=== PATIENT | female | born 1975 | race Caucasian/White ===

== ENCOUNTER 2019-12-05 12:08 | Outpatient (REF) | payer MEDICAID, SELFPAY | END 2019-12-05 12:09 | disposition home or self-care (01) | LOC: HO.LAB 12:08 | PROVIDERS: Visit Provider Internal Medicine | DX: Z20.828 Contact with and (suspected) exposure to other viral communicable diseases (principal) | CPT/HCPCS: 36415; 87635 ==

== ENCOUNTER 2020-01-16 16:39 | Outpatient (REF) | payer MEDICAID, SELFPAY | END 2020-01-16 16:40 | disposition home or self-care (01) | LOC: HO.LAB 16:39 | PROVIDERS: Visit Provider Internal Medicine | DX: Z20.828 Contact with and (suspected) exposure to other viral communicable diseases (principal) | CPT/HCPCS: C9803; U0003 ==

== ENCOUNTER 2020-02-21 17:47 | Outpatient (REF) | payer MEDICAID, SELFPAY | END 2020-02-21 17:48 | disposition home or self-care (01) | LOC: HO.LAB 17:47 | PROVIDERS: PCP Pediatrics; Visit Provider Internal Medicine | DX: Z20.828 Contact with and (suspected) exposure to other viral communicable diseases (principal) | CPT/HCPCS: C9803; U0003 ==

== ENCOUNTER 2020-06-20 13:17 | Outpatient (REF) | payer MEDICAID, SELFPAY ==
[2020-06-20 13:55] LABS: COVID-19 Test Positive (Negative)
== END 2020-06-20 13:18 | disposition home or self-care (01) ==
LOC: HO.LAB 13:17
PROVIDERS: Visit Provider Internal Medicine
DX: Z20.822 Contact with and (suspected) exposure to COVID-19 (principal)
CPT/HCPCS: 36415; 87635; C9803

== ENCOUNTER 2020-07-03 12:23 | Outpatient (REF) | payer MEDICAID, SELFPAY ==
[2020-07-03 13:06] LABS: COVID-19 Test Negative (Negative); IDNOW Serial# 55D5AD1C
== END 2020-07-03 12:24 | disposition home or self-care (01) ==
LOC: HO.LAB 12:23
PROVIDERS: Visit Provider Internal Medicine
DX: Z20.822 Contact with and (suspected) exposure to COVID-19 (principal)
CPT/HCPCS: 36415; 87635; C9803

== ENCOUNTER 2020-07-13 09:22 | Outpatient (REF) | payer MEDICAID, SELFPAY ==
[2020-07-13 09:49] LABS: COVID-19 Test Negative (Negative)
== END 2020-07-13 09:23 | disposition home or self-care (01) ==
LOC: HO.LAB 09:22
PROVIDERS: Visit Provider Internal Medicine
DX: Z20.822 Contact with and (suspected) exposure to COVID-19 (principal)
CPT/HCPCS: 36415; 87635; C9803

== ENCOUNTER 2020-07-26 15:24 | Outpatient (REF) | payer MEDICAID, SELFPAY ==
[2020-07-26 15:48] LABS: COVID-19 Test Negative (Negative)
== END 2020-07-26 15:25 | disposition home or self-care (01) ==
LOC: HO.LAB 15:24
PROVIDERS: Visit Provider Internal Medicine
DX: Z20.822 Contact with and (suspected) exposure to COVID-19 (principal)
CPT/HCPCS: 36415; 87635; C9803

== ENCOUNTER 2023-11-04 14:59 | Outpatient (REF) | payer MEDICAID, SELFPAY ==
--- NOTE | ~2023-11-04 | MM_ITS ---
EXAMINATION: MM DIAGNOSTIC DIGITAL BREAST TOMOSYNTHESIS, BILATERAL US BREAST LIMITED, LEFT MAMMOGRAPHY: CLINICAL INFORMATION: Palpable abnormality in left axillary region. 48-year-old female. COMPARISON: Mammography: No priors, all priors are in [place] and unobtainable. TECHNIQUE: Digital breast tomosynthesis is performed in both the craniocaudal and mediolateral oblique views along with computer-aided detection (CAD). Synthesized 2D images are generated from the tomosynthesis. In addition to standard views, spot magnification views of the left axilla were also obtained in the CC and MLO projections. FINDINGS: There are scattered areas of fibroglandular density (ACR BI-RADS breast composition Category b). A marker has been placed in the left axillary region marking the area of palpable concern. There is very prominent left axillary fat pad present, without underlying soft tissue abnormality. In addition, there is a small right axillary fat pad as well. No abnormal lymphadenopathy is evident. There are no suspicious masses, suspicious grouped calcifications, or areas of architectural distortion in either breast. There is no skin abnormality. ULTRASOUND: CLINICAL INFORMATION: As above. COMPARISON: None TECHNIQUE: Targeted sonographic evaluation was performed using a high frequency linear transducer. Attention was focused on the left axilla. Selected archived documentation. FINDINGS: LEFT AXILLA: -Left axilla demonstrates prominent axillary fat pad without underlying soft tissue abnormality or abnormal lymph node. There are no masses, cystic abnormalities, abnormal shadowing, or areas of architectural distortion. Only normal fat tissue is seen. MM/MM tomosynthesis diagnostic BI IMPRESSION: -There are no findings suspicious for malignancy in either breast. -Palpable abnormality in the left axilla is related to a prominent axillary fat pad. No underlying soft tissue abnormality. This finding is benign. -Recommend the patient return to routine annual screening. OVERALL ASSESSMENT: Mammography: BI-RADS 2 - Benign Findings Ultrasound: BI-RADS 2 - Benign Findings RECOMMENDATION: 1 year F/U This patient's information was entered into a reminder system with a target due date for their next mammogram. Electronically signed by: Joshua Orellana MD 11/04/2023 04:38 PM EDT
== END 2023-11-04 15:00 | disposition home or self-care (01) ==
LOC: HO.MAMMO 14:59
PROVIDERS: PCP Nurse Practitioner Family; Visit Provider Nurse Practitioner Family
DX: R22.32 Localized swelling, mass and lump, left upper limb (principal)
CPT/HCPCS: 76642; 77062; 77066

== ENCOUNTER → 2023-11-04 15:00 | Outpatient (BNV) | payer MEDICAID, SELFPAY | PROVIDERS: PCP Nurse Practitioner Family; Visit Provider Radiology Diagnostic Radiology | DX: N63.32 Unspecified lump in axillary tail of the left breast (principal) | CPT/HCPCS: 76642; 77062; 77066 ==

== ENCOUNTER 2024-11-07 14:04 | Outpatient (REF) | payer MEDICAID, SELFPAY ==
--- OUTSIDE RECORDS SUMMARY | 2024-11-07 13:15 | XMS_ITS | Encounter Summary ---
Author Organization [employer] Address [address] [place] [address] [address] [place] [address] Care Team Providers Care Magazine Grinder Loader Name Role Phone Joan Hernández CHIP BIN OPERATOR Primary Care Provider [phone] Reason for Visit * Reason Comments Annual Exam Encounter Details Date Type Department Care Team ([facility] st Contact Info) Description 11/07/2024 1:15 PM EDT Office Visit [facility] [address], [place] [id number] Court Nath MD [address] [place] [address] Routine general medical examination at a health care facility (Primary Dx); Fatigue, unspecified type; History of gestational diabetes; Routine screening for STI (sexually transmitted infection); Screening for lipid disorders Social History Tobacco Use Types Packs/Day Years Used Date Smoking Tobacco: Never Smokeless Tobacco: Never Alcohol Use Standard Drinks/Week Comments Never 0 (1 standard drink = 0.6 oz pur e alcohol) Depression Answer Date Recorded Patient Health Questionnaire-9 Score 9 11/07/2024 Patient Health Questionnaire-9 Score 9 11/07/2024 Last PHQ-9: Questionnaire Data Not on file 0 11/07/2024 Housing Stability Answer Date Recorded What is your housing situation today? I have koko t[place] 10/28/[address] you li ve. Do you have problems with any of the following? None of the above 10/28/2024 Food Insecurity Answer Date Recorded Within the past 12 months, y ou worried that your food would run out before you got money to buy more: Never True 10/28/2024 Within the past 12 months,th e food you bought just didn't last and you didn't have enough money to get more: Never True Transportation Answer Date Recorded In the past 12 months, has l ack of transportation kept you from medical appts, meetings, work or from getting things needed for daily living? No 10/28/2024 Utilities Answer Date Recorded In the past 12 months, has t he electric, gas, oil or water company threatened to shut off services in your home? No 10/28/2024 Depression Answer Date Recorded Patient Health Questionnaire-2 Score 2 11/07/2024 Internet Access Answer Date Recorded Internet Access Q1 Yes 10/28/2024 Internet Access Q2 Not on file 10/28/2024 Comments Unknown Sex and Gender Information Value Date Recorded Sex Assigned at Female 12/30/2021 10:25 AM EDT Legal Sex Female 10:25 AM EDT Gender Identity Female 12/30/2021 10:25 AM EDT Sexual Orientation Choose not to disclose 2021 10:25 AM EDT documented as of this encounter Last Filed Vital Signs Vital Sign Reading Time Taken Comments Blood Pressure 130/80 11/07/2024 1:11 PM EDT Pulse 71 11/07/2024 1:11 PM EDT Temperature 36.6 C (97.8 F) 11/07/2024 1:11 PM EDT Respiratory Rate 20 11/07/2024 1:11 PM EDT Oxygen Saturation 98% 11/07/2024 1:11 PM EDT Inhaled Oxygen Concentration - - Weight 62.1 kg (137 lb) 11/07/2024 1:11 PM EDT Height 160 cm (5' 3 ) 11/07/2024 1:11 PM EDT Body Mass Index 24.27 11/07/2024 1:11 PM EDT documented in this encounter Functional Status * Over the past 2 weeks, how often have you been bothered by any of the following problems? Question Answer Date of Assessment Author Patient Health Questionnaire -2 Score 2 11/07/2024 2:04 PM EDT Dalila Easley MA * Little interest or pleasure in doing things Answer Date of Assessment Author Several days 11/07/2024 2:04 PM EDT Pepper Easley MA * Feeling down, depressed, or hopeless Answer Date of Assessment Author Several days 11/07/2024 2:04 PM EDT Pepper Easley MA * Trouble falling or staying asleep, or sleeping too much Answer Date of Assessment Author Nearly every day 11/07/2024 2:04 PM EDT Pepper Easley MA * Feeling tired or having little energy Answer Date of Assessment Author More than half the days 11/07/2024 2:04 PM EDT Pepper Zurita MA * Poor appetite or overeating Answer Date of Assessment Author Several days 11/07/2024 2:04 PM EDT Pepper Easley MA * Feeling bad about yourself - or that you are a failure or have let yourself or your family down Answer Date of Assessment Author Not at all 11/07/2024 2:04 PM EDT Pepper Easley MA * Trouble concentrating on things, such as reading the newspaper or watching television Answer Date of Assessment Author Not at all 11/07/2024 2:04 PM EDT Pepper Easley MA * Moving or speaking so slowly that other people could have noticed? Or the opposite - being so fidgety or restless that you have been moving around a lot more than usual. Answer Date of Assessment Author Not at all 11/07/2024 2:04 PM SAMYT Pepper Easley MA * Thoughts that you would be better off or hurting yourself in some way Answer Date of Assessment Author Several days 11/07/2024 2:04 PM SAMYT Pepper Easley MA * Patient Health Questionnaire-9 Score Answer Date of Assessment Author 9 11/07/2024 2:04 PM EDT Pepper Easley MA * How difficult have these problems made it for you to do your work, take care of things at home, or get along with other people? Answer Date of Assessment Author Somewhat difficult 11/07/2024 2:04 PM EDT Pepper Ennis MA documented as of this encounter Plan of Treatment Scheduled Orders Name Type Priority Associated Diagnoses Orde r Schedule Comprehensive Metabolic Panel Lab Routine Fatigue, unspecified type Expected: 11/07/2024 (Approximate), Expires: 11/07/2025 TSH with Reflex to Free T4 Lab Routine Fatigue, unspecified type Expected: 11/07/2024 (Approximate), Expires: 11/07/2025 Lipid Panel with Reflex to Direct LDL Lab Routine Screening for lipid disorders Expected: 11/07/2024 (Approximate), Expires: 11/07/2025 Hepatitis B Core Antibody, Total Lab Routine Routine screening for STI (sexually transmitted infection) Expected: 11/07/2024 (Approximate), Expires: 11/07/2025 Hepatitis B Surface Antibody, Qualitative Lab Routine Routine screening for STI (sexually transmitted infection) Expected: 11/07/2024 (Approximate), Expires: 11/07/2025 Hepatitis B surface antigen, EIA Lab Routine Routine screening for STI (sexually transmitted infection) Expected: 11/07/2024 (Approximate), Expires: 11/07/2025 Hepatitis C Antibody with Reflex to HCV, RNA, Quantitative, Real-Time PCR Lab Routine Routine screening for STI (sexually transmitted infection) Expected: 11/07/2024 (Approximate), Expires: 11/07/2025 HIV-1/2 Antigen and Antibodies, Fourth Generation, with Reflexes Lab Routine Routine screening for STI (sexually transmitted infection) Expected: 11/07/2024 (Approximate), Expires: 11/07/2025 Syphilis Screen Lab Routine Routine screening for STI (sexually transmitted infection) Expected: 11/07/2024 (Approximate), Expires: 11/07/2025 documented as of this encounter Procedures Procedure Name Priority Date/Time Associated Diagnosis Comments CBC WITH AUTO DIFFERENTIAL Routine 11/07/2024 2:07 PM EDT Fatigue, unspecified type HEMOGLOBIN A1C Routine 11/07/2024 2:07 PM EDT History of gestational diabetes documented in this encounter Results * Hemoglobin A1c (11/07/2024 2:07 PM EDT) Hemoglobin A1c 5.8 <6.0 % [facility] Comment:Hemoglobin A1C Refer ence Range Adults: 4.8 - 6.0 % Non diabetic: < 6.0 % Goal: < 7.0 %Additional Action Suggested: > 8.0 %Note: Hemoglobin A1c results are invalid for patients with abnormal amounts of HbF. Blood transfusions may impact the HbA1c concentration in the patient sample. Estimated Average Glucose 120 mg/dL [facility] Comment:eAG = Estimated ave rage glucose which is %A1C expressed asaverage glucose, using the formula of the [id number] Glucose study (ADAG), Diabetes Care, Vol.31,#8,2007 Blood Venous blood specimen / Unknown 11/07/2024 2:07 PM EDT 11/07/2024 4:[address] Nath MD LAB BLOOD ORDERABLES Final Resul t [facility] [address] [place] [phone] * (ABNORMAL) CBC auto differential (11/07/2024 2:07 PM EDT) White Blood Count 6.2 4.8 - 10.8 X10*3/uL [facility] Red Blood Count 4.06(L) 4.20 - 5.50 X10*6/uL [facility] Hemoglobin 10.8(L) 12.0 - 16.0 g/dl [facility] Hematocrit 33.8(L) 37.0 - 47.0 % [facility] Mean Corpuscular Volume 83.3 80.0 - 98.0 fL [facility] Mean Corpuscular Hemoglobin 26.6(L) 27.0 - 33.0 pg [facility] Mean Corpuscular HGB Conc 32.0 31.0 - 35.0 g/dl [facility] Red Cell Distribution Width 14.6 11.0 - 16.0 % [facility] Platelet Count 229 160 - 400 X10*3/uL [facility] Mean Platelet Volume 12.6(H) 9.4 - 12.3 fL [facility] Neutrophils Percent Auto 53.3 45 - 73 % [facility] Imm Gran Pct Auto 0.2 0.0 - 0.4 % [facility] Lymphocytes Percent Auto 37.5 20 - 40 % [facility] Monocytes Percent Auto 7.0 2 - 11 % [facility] Eosinophils Percent Auto 1.5 0 - 4 % [facility] Basophils Percent Auto 0.5 0 - 2 % [facility] NRBC Pct Auto 0.0 0.0 - 0.2 /100WBC [facility] Neutrophils Absolute Auto 3.3 2.0 - 8.3 x10*3/uL [facility] Imm Gran Abs Auto 0.01 0.00 - 0.03 X10*3/uL [facility] Lymphocytes Absolute Auto 2.3 1.2 - 4.9 X10*3/uL [facility] Monocytes Absolute Auto 0.4 0.1 - 1.2 X10*3/uL [facility] Eosinophils Absolute Auto 0.1 0.0 - 0.4 X10*3/uL [facility] Basophils Absolute Auto 0.0 0.0 - 0.2 X10*3/uL [facility] NRBC Abs Auto 0.000 0.0 - 0.012 X10*3/uL [facility] Blood Venous blood specimen / Unknown 11/07/2024 2:07 PM EDT 11/07/2024 4:[address] Naht MD LAB BLOOD ORDERABLES Final Resul t Performing Organization Address City/State/[facility] Co de Phone Number [facility] [address] [place] [phone] documented in this encounter Visit Diagnoses Diagnosis Routine general medical examination at a health care facility- Primary Fatigue, unspecified type History of gestational diabetes Personal history of other genital system and obstetric disorders Routine screening for STI (sexually transmitted infection) Screening examination for venereal disease Screening for lipid disorders documented in this encounter Additional Health Concerns Assessment Noted Time PHQ-9 Depression Total Score: 9 11/08/19 25 2:04 PM EDT documented as of this encounter Care Teams Magazine Grinder Loader Relationship Specialty Start Date End Date Joan Hernández FNP [address] [place] [phone] PCP - General Family Medicine 01/01/24 documented as of this encounter
[2024-11-07 16:09] LABS: MANUAL DIFF FLAG NO
[2024-11-07 16:16] LABS: Hematocrit 33.8 % (37.0-47.0); Hemoglobin 10.8 g/dl (12.0-16.0); Imm Gran Abs Auto 0.01 X10*3/uL (0.00-0.03); Imm Gran Pct Auto 0.2 % (0.0-0.4); Lymphocytes Absolute Auto 2.3 X10*3/uL (1.2-4.9); Mean Corpuscular HGB Conc 32.0 g/dl (31.0-35.0); Mean Corpuscular Hemoglobin 26.6 pg (27.0-33.0); Mean Corpuscular Volume 83.3 fL (80.0-98.0); NRBC Abs Auto 0.000 X10*3/uL (0.0-0.012); NRBC Pct Auto 0.0 /100WBC (0.0-0.2); Platelet Count 229 X10*3/uL (160-400); Red Blood Count 4.06 X10*6/uL (4.20-5.50); White Blood Count 6.2 X10*3/uL (4.8-10.8)
[2024-11-07 16:20] LABS: Hemoglobin A1C 116.3032 umol/L; Total Hemoglobin (HGBA1C) 2915.5003 umol/L
--- OUTSIDE RECORDS SUMMARY | 2024-11-07 16:26 | XMS_ITS | Encounter Summary ---
Author Organization [employer] Address [address] [place] [address] [address] [place] [address] Care Team Providers Care Geospatial Applications Developer Name Role Phone Joan Hernández CUSTOMER ADVOCATE Primary Care Provider [phone] Encounter Details Date Type Department Care Team (Latest Contact Info) Description 11/07/2024 Travel Social History Tobacco Use Types Packs/Day Years [...] AM EDT documented as of this encounter Functional Status * Over the past 2 weeks, how often have you been bothered by any of the following problems? Question Answer Date of Assessment Author Patient Health Questionnaire -2 Score 2 11/07/2024 2:04 PM EDT Dalila Easley MA * Little interest or pleasure in doing things Answer Date of Assessment Author Several days 11/07/2024 2:04 PM Pepper Bishop MA * Feeling down, depressed, or hopeless Answer Date of Assessment Author Several days 11/07/2024 2:04 PM Pepper Bishop MA * Trouble falling or staying asleep, or sleeping too much Answer Date of Assessment Author Nearly every day 11/07/2024 2:04 PM Pepper Bishop MA * Feeling tired or having little energy Answer Date of Assessment Author More than half the days 11/07/2024 2:04 PM EDT Pepper Zurita MA * Poor appetite or overeating Answer Date of Assessment Author Several days 11/07/2024 2:04 PM SAMYT Pepper Easley MA * Feeling bad about yourself - or that you are a failure or have let yourself or your family down Answer Date of Assessment Author Not at all 11/07/2024 2:04 PM Pepper Bishop MA * Trouble concentrating on things, such as reading the newspaper or watching television Answer Date of Assessment Author Not at all 11/07/2024 2:04 PM Pepper Bishop MA * Moving or speaking so slowly that other people could have noticed? Or the opposite - being so fidgety or restless that you have been moving around a lot more than usual. Answer Date of Assessment Author Not at all 11/07/2024 2:04 PM EDT Pepper Easley MA * Thoughts that you would be better off or hurting yourself in some way Answer Date of Assessment Author Several days 11/07/2024 2:04 PM EDT Pepper Easley MA * Patient Health Questionnaire-9 Score Answer Date of Assessment Author 11/07/2024 2:04 PM EDT Pepper Easley MA * How difficult have these problems made it for you to do your work, take care of things at home, or get along with other people? Answer Date of Assessment Author Somewhat difficult 11/07/2024 2:04 PM EDT Pepper Ennis MA documented as of this encounter Plan of Treatment Not on file documented as of this encounter Visit Diagnoses Not on filedocumented in this encounter Additional Health Concerns Assessment Noted Time PHQ-9 Depression Total Score: 11/08/19 25 2:04 PM EDT documented as of this encounter Care Teams Geospatial Applications Developer Relationship Specialty Start Date End Date Joan Hernández FNP [address] [place] [phone] PCP - General Family Medicine 01/01/24 documented as of this encounter
--- OUTSIDE RECORDS SUMMARY | 2024-11-07 16:26 | XMS_ITS | Clinical Summary ---
Author Organization [employer] Address [address] [place] [address] 7 [place] [address] Care Team Providers Care Account Adjuster Name Role Phone Joan Hernández [employer] Primary Care Provider Allergies Active Allergy Reactions Criticality Noted Date Comments Meperidine 04/04/2013 Medications * This document contains information received from the source organization and may not represent a complete record from that organization. No known medications Active Problems Problem Noted Date Diagnosed Date Mass of left axilla 09/28/2023 Assessment & Plan (10/24/2023 2:40 PM EDT): Breat ultrasound and mammogram ordered, pt aware to report any changes new symptoms or does not hear to schedule imaging Anxiety 09/28/2023 Assessment & Plan (10/24/2023 2:39 PM EDT): Referral to Acute cystitis 09/23/2023 AMA (advanced maternal age) multigravida 35+ Anemia during 09/23/2023 Gestational diabetes 09/23/2023 History of depression 09/23/2023 History of delivery 09/23/2023 History of tachycardia 09/23/2023 Vaginal bleeding affecting early 09/22 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 Tachycardia 04/04/2013 Encounters Date Type Department Care Team Description 11/07/2024 1:15 PM EDT Office Visit [facility] MEDICINE [address] [place] [phone] Court Nath MD Routine general medical examination at a health care facility (Primary Dx); Fatigue, unspecified type; History of gestational diabetes; Routine screening for STI (sexually transmitted infection); Screening for lipid disorders 11/07/2024 Travel 11/04/2024 Telephone [facility] WALK-IN CENTER [address] [place] [address] Parvin Cosby MA 10/28/2024 Patient Outreach [facility] CHC MED & PEDS [address] [place], [place] [phone] Joan Hernández FNP Pre-visit Planning (SDOH negative, Tobacco screening negative. ) 09/28/2024 Telephone [facility] ADULT DENTAL [address], [place] [phone] Leena Moraes from Last 3 Months Immunizations Immunization Administration Dates Next Due DTaP 05/21/2012 Hep B, Unspecified 12/30/2016 MMR 09/12/2019,12/30/2016 Tdap 11/07/2024 Social History Tobacco Use Types Packs/Day Years Used Date Smoking Tobacco: Never Smokeless Tobacco: Never Tobacco Cessation:Counseling Given: Not Answered Alcohol Use Standard Drinks/Week Comments Never 0 [...] not to disclose 2021 10:25 AM EDT Last Filed Vital Signs Vital Sign Reading [...] Mass Index 24.27 11/07/2024 1:11 PM EDT Plan of Treatment Health Maintenance Due Date Last Done Comments CT Colonography 1975 Colonoscopy 1975 Colorectal Cancer Screening 1975 FIT DNA/Cologuard 1977 FIT 1975 FOBT 1975 Sigmoidoscopy 1975 Family Planning (PISQ) 1992 Pap Smear 1998 Cervical Cancer Screening 09/17/2007 HPV/Cotest 09/17/2007 Hepatitis B Vaccines (2 of 3 - 19+ 3-dose series) 01/27/2017 12/30/2016 Dental Oral Exam 03/31/2021 09/27/2020, 08/31/2017 Dental Prophylaxis 03/31/2021 09/27/2020 Dental X-Ray: Bitewings 09/28/2021 09/28/19 21, 08/31/2017 Dental X-Ray: Full Mouth 09/29/2023 021, 08/31/2017 COVID-19 Vaccine (3 - 2025-2 6 season) 2024 09/18/2020, 08/29/2020 Influenza Vaccine (#1) 2024 Depression Monitoring 05/07/2025 11/07/2024 , 11/07/2024 SDOH Screening 10/28/2025 10/28/2024 Mammogram 11/03/2025 11/04/2023, 11/04/2023 Alcohol/Substance Use Screening 11/07/2025 11/07/2024 Disability Screening 11/07/2025 11/07/2024 Tobacco Screening 11/07/2025 11/07/2024 Zoster Vaccines (1 of 2) 09/17/2027 DTaP/Tdap/Td Vaccines (3 - T d or Tdap) 11/07/2034 11/07/2024, 05/21/2012 RSV Patients and Patients Aged 60 years or older (1 - 1-dose 75+ series) 2052 HIV Screening Completed 09/01/2019 Hepatitis C Screening Completed 09/01/2019 HIB Vaccines Aged Out No longer eligi ble based on patient's age to complete this topic HPV Vaccines Aged Out No longer eligi ble based on patient's age to complete this topic Hepatitis A Vaccines Aged Out No long er eligible based on patient's age to complete this topic IPV Vaccines Aged Out No longer eligi ble based on patient's age to complete this topic Meningococcal B Vaccine Aged Out No l onger eligible based on patient's age to complete this topic Meningococcal Vaccine Aged Out No jazlyn sandor eligible based on patient's age to complete this topic Pneumococcal Vaccine: Pediatrics (0 to 5 Years) and At-Risk Patients (6 to 49) Years Aged Out No longer eligible b ased on patient's age to complete this topic RSV under 20 months Aged Out No longe r eligible based on patient's age to complete this topic Rotavirus Vaccines Aged Out No longer eligible based on patient's age to complete this topic Procedures Procedure Name Priority Date/Time Associated Diagnosis Comments HEMOGLOBIN A1C Routine 11/07/2024 2:07 PM EDT History of gestational diabetes CBC WITH AUTO DIFFERENTIAL Routine 11/07/2024 2:07 PM EDT Fatigue, unspecified type BI US BREAST LIMITED LEFT STAT 11/04/2023 3:30 PM EDT Mass of left axilla PROPHYLAXIS - ADULT Routine 09/27/2020 1 2:00 AM EDT INTRAORAL - COMPLETE SERIES OF RADIOGRAPHIC IMAGES Routine 09/27/2020 12:00 AM EDT PERIODIC ORAL EVALUATION - ESTABLISHED PATIENT Routine 09/27/2020 12:00 AM EDT ZZZ HISTORICAL HEPATITIS C AB W/REFL TO HCV RNA, QN, PCR Routine 09/01/2019 2:30 PM EDT HIV 1/2 ANTIGEN/ANTIBODY, FOURTH GENERATION W/RFL Routine 09/01/2019 2:30 PM EDT from Last 3 Months or Most Recently Relevant to Health Maintenance Results * (ABNORMAL) CBC auto differential (11/07/2024 2:07 PM EDT) White Blood Count 6.2 4.8 - 10.8 X10*3/uL [facility] Red Blood Count 4.06(L) 4.20 - 5.50 X10*6/uL [facility] Hemoglobin 10.8(L) 12.0 - 16.0 g/dl [facility] Hematocrit 33.8(L) 37.0 - 47.0 % [facility] Mean Corpuscular Volume 83.3 80.0 - 98.0 fL [facility] Mean Corpuscular Hemoglobin 26.6(L) 27.0 - 33.0 pg [facility] Mean Corpuscular HGB Conc 32.0 31.0 - 35.0 g/dl [facility] Red Cell Distribution Width 14.6 11.0 - 16.0 % [facility] Platelet Count 229 160 - 400 X10*3/uL [facility] Mean Platelet Volume 12.6(H) 9.4 - 12.3 fL [facility] Neutrophils Percent Auto 53.3 45 - 73 % [facility] Imm Gran Pct Auto 0.2 0.0 - 0.4 % [facility] Lymphocytes Percent Auto 37.5 20 - 40 % [facility] Monocytes Percent Auto 7.0 2 - 11 % [facility] Eosinophils Percent Auto 1.5 0 - 4 % [facility] Basophils Percent Auto 0.5 0 - 2 % [facility] NRBC Pct Auto 0.0 0.0 - 0.2 /100WBC [facility] Neutrophils Absolute Auto 3.3 2.0 - 8.3 x10*3/uL [facility] Imm Gran Abs Auto 0.01 0.00 - 0.03 X10*3/uL [facility] Lymphocytes Absolute Auto 2.3 1.2 - 4.9 X10*3/uL [facility] Monocytes Absolute Auto 0.4 0.1 - 1.2 X10*3/uL [facility] Eosinophils Absolute Auto 0.1 0.0 - 0.4 X10*3/uL [facility] Basophils Absolute Auto 0.0 0.0 - 0.2 X10*3/uL [facility] NRBC Abs Auto 0.000 0.0 - 0.012 X10*3/uL [facility] Blood Venous blood specimen / Unknown 11/07/2024 2:07 PM EDT 11/07/2024 4:02 PM EDT us Corut Nath MD LAB BLOOD ORDERABLES Final Resul t [facility] [address] [place] [phone] * Hemoglobin A1c (11/07/2024 2:07 PM EDT) Hemoglobin A1c 5.8 <6.0 % [facility] Comment:Hemoglobin A1C Refer ence Range Adults: 4.8 - 6.0 % Non diabetic: < 6.0 % Goal: < 7.0 %Additional Action Suggested: > 8.0 %Note: Hemoglobin A1c results are invalid for patients with abnormal amounts of HbF. Blood transfusions may impact the HbA1c concentration in the patient sample. Estimated Average Glucose 120 mg/dL [facility] Comment:eAG = Estimated ave rage glucose which is %A1C expressed asaverage glucose, using the formula of the V5H-MuckswhEknnjkf Glucose study (ADAG), Diabetes Care, Vol.31,#8,2007 Blood Venous blood specimen / Unknown 11/07/2024 2:07 PM EDT 11/07/2024 4:[address] Nath MD LAB BLOOD ORDERABLES Final Resul t [facility] [address] [place] [phone] * BI US Breast Limited Left (11/04/2023 3:30 PM EDT) Anatomical Region Laterality Modality Breast Left Ultrasound 11/04/2023 3:30 PM EDT Narrative 11/04/2023 4:40 PM EDT [address] [place] [address] Ultrasound Report Signed Patient: Rosie Torres MR#: [id number] : 1975 Acct:[id number] Age/Sex: 48 / F ADM Date: 11/04/23 Loc: HO.MAMMO Attending Dr: Shira Jay NP Ordering Physician: Shira Jay NP Date of Service: 11/04/23 Procedure(s): US breast LT limited mamm only Accession Number(s): [id number] cc: Shira Jay CATEGORY PLANNER EXAMINATION: MM DIAGNOSTIC DIGITAL BREAST TOMOSYNTHESIS, BILATERAL US BREAST LIMITED, LEFT MAMMOGRAPHY: CLINICAL INFORMATION: Palpable abnormality in left axillary region. 48-year-old female. COMPARISON: Mammography: No priors, all priors are in [place] and unobtainable. TECHNIQUE: Digital breast tomosynthesis is performed in both the craniocaudal and mediolateral oblique views along with computer-aided detection (CAD). Synthesized 2D images are generated from the tomosynthesis. In addition to standard views, spot magnification views of the left axilla were also obtained in the CC and MLO projections. FINDINGS: There are scattered areas of fibroglandular density (ACR BI-RADS breast composition Category b). A marker has been placed in the left axillary region marking the area of palpable concern. There is very prominent left axillary fat pad present, without underlying soft tissue abnormality. In addition, there is a small right axillary fat pad as well. No abnormal lymphadenopathy is evident. There are no suspicious masses, suspicious grouped calcifications, or areas of architectural distortion in either breast. There is no skin abnormality. ULTRASOUND: CLINICAL INFORMATION: As above. COMPARISON: None TECHNIQUE: Targeted sonographic evaluation was performed using a high frequency linear transducer. Attention was focused on the left axilla. Selected archived documentation. FINDINGS: LEFT AXILLA: -Left axilla demonstrates prominent axillary fat pad without underlying soft tissue abnormality or abnormal lymph node. There are no masses, cystic abnormalities, abnormal shadowing, or areas of architectural distortion. Only normal fat tissue is seen. US/US breast LT limited mamm only IMPRESSION: -There are no findings suspicious for malignancy in either breast. -Palpable abnormality in the left axilla is related to a prominent axillary fat pad. No underlying soft tissue abnormality. This finding is benign. -Recommend the patient return to routine annual screening. OVERALL ASSESSMENT: Mammography: BI-RADS 2 - Benign Findings Ultrasound: BI-RADS 2 - Benign Findings RECOMMENDATION: 1 year F/U This patient's information was entered into a reminder system with a target due date for their next mammogram. Electronically signed by: Joshua Orellana MD 11/04/2023 04:38 PM EDT Dictated By: Joshua Orellana MD Signed By: <Electronically signed by Joshua Orellana MD in OV> 11/04/23 1638 DD/ 1530 TD/TT: 11/04/23 1601 Farm Planner: Procedure Note Donotuseinterpreter, Image - 11/04/2023 [place] [facility] [address] [place] [address] Ultrasound Report Signed Patient: Rosie Torres#: [id number] : 1975Acct:[id number] Age/Sex: 48 / FADM Date: 11/04/23 Loc: HO.MAMMO Attending Dr: Shira Jay NP Ordering Physician: Shira Jay NP Date of Service: 11/04/23 Procedure(s): US breast LT limited mamm only Accession Number(s): [id number] cc: Shira Jay Keshawn CATEGORY PLANNER EXAMINATION: MM DIAGNOSTIC DIGITAL BREAST TOMOSYNTHESIS, BILATERAL US BREAST LIMITED, LEFT MAMMOGRAPHY: CLINICAL INFORMATION: Palpable abnormality in left axillary region. 48-year-old female. COMPARISON: Mammography: No priors, all priors are in [place] and unobtainable. TECHNIQUE: Digital breast tomosynthesis is performed in both the craniocaudal and mediolateral oblique views along with computer-aided detection (CAD). Synthesized 2D images are generated from the tomosynthesis. In addition to standard views, spot magnification views of the left axilla were also obtained in the CC and MLO projections. FINDINGS: There are scattered areas of fibroglandular density (ACR BI-RADS breast composition Category b). A marker has been placed in the left axillary region marking the area of palpable concern. There is very prominent left axillary fat pad present, without underlying soft tissue abnormality. In addition, there is a small right axillary fat pad as well. No abnormal lymphadenopathy is evident. There are no suspicious masses, suspicious grouped calcifications, or areas of architectural distortion in either breast. There is no skin abnormality. ULTRASOUND: CLINICAL INFORMATION: As above. COMPARISON: None TECHNIQUE: Targeted sonographic evaluation was performed using a high frequency linear transducer. Attention was focused on the left axilla. Selected archived documentation. FINDINGS: LEFT AXILLA: -Left axilla demonstrates prominent axillary fat pad without underlying soft tissue abnormality or abnormal lymph node. There are no masses, cystic abnormalities, abnormal shadowing, or areas of architectural distortion. Only normal fat tissue is seen. US/US breast LT limited mamm only IMPRESSION: -There are no findings suspicious for malignancy in either breast. -Palpable abnormality in the left axilla is related to a prominent axillary fat pad. No underlying soft tissue abnormality. This finding is benign. -Recommend the patient return to routine annual screening. OVERALL ASSESSMENT: Mammography: BI-RADS 2 - Benign Findings Ultrasound: BI-RADS 2 - Benign Findings RECOMMENDATION: 1 year F/U This patient's information was entered into a reminder system with a target due date for their next mammogram. Electronically signed by: Joshua Orellana MD 11/04/2023 04:38 PM EDT Dictated By: Joshua Orellana MD Signed By: <Electronically signed by Joshua Orellana MD in OV> 11/04/23 1638 DD/ 1530 TD/TT: 11/04/23 1601 Farm Planner: Shira Jay NAVA IMG US PROCEDURES Final Result * HEPATITIS C AB W/REFL TO HCV RNA, QN, PCR (09/01/2019 2:30 PM EDT) HEPATITIS C ANTIBODY NON-REACT IGGY NON-REACT IGGY [facility] INDEX 0.01 <1.00 [facility] Comment: HCV antibody was non-reactive. There is no laboratory evidence of HCV infection. In most cases, no further action is required. However, if recent HCV exposure is suspected, a test for HCV RNA (test code 27119) is suggested. For additional information please refer to http://Graftworx/faq/HHY86e9 (This link is being provided for informational/ educational purposes only.) HEPATITIS C ANTIBODY NON-REACT IGGY NON-REACT IGGY [facility] INDEX 0.01 <1.00 [facility] Comment: HCV antibody was non-reactive. There is no laboratory evidence of HCV infection. In most cases, no further action is required. However, if recent HCV exposure is suspected, a test for HCV RNA (test code 42718) is suggested. For additional information please refer to http://Graftworx/faq/JUQ75b0 (This link is being provided for informational/ educational purposes only.) HEPATITIS C ANTIBODY NON-REACT IGGY NON-REACT IGGY [facility] INDEX 0.01 <1.00 [facility] Comment: HCV antibody was non-reactive. There is no laboratory evidence of HCV infection. In most cases, no further action is required. However, if recent HCV exposure is suspected, a test for HCV RNA (test code 08488) is suggested. For additional information please refer to http://AeroDron.Walkabout/faq/OKY74w1 (This link is being provided for informational/ educational purposes only.) HEPATITIS C ANTIBODY NON-REACT IGGY NON-REACT IGGY [facility] INDEX 0.01 <1.00 [facility] Comment: HCV antibody was non-reactive. There is no laboratory evidence of HCV infection. In most cases, no further action is required. However, if recent HCV exposure is suspected, a test for HCV RNA (test code 89205) is suggested. For additional information please refer to http://Graftworx/faq/YSJ51y9 (This link is being provided for informational/ educational purposes only.) HEPATITIS C ANTIBODY NON-REACT IGGY NON-REACT IGGY [facility] INDEX 0.01 <1.00 [facility] Comment: HCV antibody was non-reactive. There is no laboratory evidence of HCV infection. In most cases, no further action is required. However, if recent HCV exposure is suspected, a test for HCV RNA (test code 09192) is suggested. For additional information please refer to http://Graftworx/faq/WJA17j3 (This link is being provided for informational/ educational purposes only.) HEPATITIS C ANTIBODY NON-REACT IGGY NON-REACT IGGY [facility] INDEX 0.01 <1.00 [facility] Comment: HCV antibody was non-reactive. There is no laboratory evidence of HCV infection. In most cases, no further action is required. However, if recent HCV exposure is suspected, a test for HCV RNA (test code 56903) is suggested. For additional information please refer to http://Graftworx/faq/GTG84d7 (This link is being provided for informational/ educational purposes only.) 09/01/2019 2:30 PM EDT us Historical Provider MD HISTORICAL/NON ORDERABLE LABS Final Result [facility] [address] * HIV 1/2 ANTIGEN/ANTIBODY,FOURTH GENERATION W/RFL (09/01/2019 2:30 PM EDT) HIV-1/2 ANTIGEN AND ANTIBODIES, 4TH GENERATION W/ REFLEX NON-REACT IGGY NON-REACT IGGY [facility] Comment: HIV-1 antigen and HIV-1/HIV-2 antibodies were not detected. There is no laboratory evidence of HIV infection. PLEASE NOTE: This information has been disclosed to you from records whose confidentiality may be protected by state law. If your state requires such protection, then the state law prohibits you from making any further disclosure of the information without the specific written consent of the person to whom it pertains, or as otherwise permitted by law. A general authorization for the release of medical or other information is NOT sufficient for this purpose. For additional information please refer to http://AeroDron.Walkabout/faq/PND146 (This link is being provided for informational/ educational purposes only.) The performance of this assay has not been clinically validated in patients less than 2 years old. HIV-1/2 ANTIGEN AND ANTIBODIES, 4TH GENERATION W/ REFLEX NON-REACT IGGY NON-REACT IGGY [facility] Comment: HIV-1 antigen and HIV-1/HIV-2 antibodies were not detected. There is no laboratory evidence of HIV infection. PLEASE NOTE: This information has been disclosed to you from records whose confidentiality may be protected by state law. If your state requires such protection, then the state law prohibits you from making any further disclosure of the information without the specific written consent of the person to whom it pertains, or as otherwise permitted by law. A general authorization for the release of medical or other information is NOT sufficient for this purpose. For additional information please refer to http://Graftworx/faq/APG598 (This link is being provided for informational/ educational purposes only.) The performance of this assay has not been clinically validated in patients less than 2 years old. HIV-1/2 ANTIGEN AND ANTIBODIES, 4TH GENERATION W/ REFLEX NON-REACT IGGY NON-REACT IGGY [facility] Comment: HIV-1 antigen and HIV-1/HIV-2 antibodies were not detected. There is no laboratory evidence of HIV infection. PLEASE NOTE: This information has been disclosed to you from records whose confidentiality may be protected by state law. If your state requires such protection, then the state law prohibits you from making any further disclosure of the information without the specific written consent of the person to whom it pertains, or as otherwise permitted by law. A general authorization for the release of medical or other information is NOT sufficient for this purpose. For additional information please refer to http://Graftworx/faq/HGK977 (This link is being provided for informational/ educational purposes only.) The performance of this assay has not been clinically validated in patients less than 2 years old. HIV-1/2 ANTIGEN AND ANTIBODIES, 4TH GENERATION W/ REFLEX NON-REACT IGGY NON-REACT IGGY [facility] Comment: HIV-1 antigen and HIV-1/HIV-2 antibodies were not detected. There is no laboratory evidence of HIV infection. PLEASE NOTE: This information has been disclosed to you from records whose confidentiality may be protected by state law. If your state requires such protection, then the state law prohibits you from making any further disclosure of the information without the specific written consent of the person to whom it pertains, or as otherwise permitted by law. A general authorization for the release of medical or other information is NOT sufficient for this purpose. For additional information please refer to http://AeroDron.Walkabout/faq/VTY800 (This link is being provided for informational/ educational purposes only.) The performance of this assay has not been clinically validated in patients less than 2 years old. HIV-1/2 ANTIGEN AND ANTIBODIES, 4TH GENERATION W/ REFLEX NON-REACT IGGY NON-REACT IGGY [facility] Comment: HIV-1 antigen and HIV-1/HIV-2 antibodies were not detected. There is no laboratory evidence of HIV infection. PLEASE NOTE: This information has been disclosed to you from records whose confidentiality may be protected by state law. If your state requires such protection, then the state law prohibits you from making any further disclosure of the information without the specific written consent of the person to whom it pertains, or as otherwise permitted by law. A general authorization for the release of medical or other information is NOT sufficient for this purpose. For additional information please refer to http://AeroDron.Walkabout/faq/FCD856 (This link is being provided for informational/ educational purposes only.) The performance of this assay has not been clinically validated in patients less than 2 years old. 09/01/2019 2:30 PM EDT us Historical Provider LAB BLOOD ORDERABLES Summer sanders Result [facility] [address] [place] [address], [place] from Last 3 Months or Most Recently Relevant to Health Maintenance Insurance [facility] [address] [place], [place] DENTAL-[facility] MEDICAID STAND ADULT Care Teams Account Adjuster Relationship Specialty Start Date End Date Joan Hernández FNP [address] [place] [address] PCP - General Family Medicine 01/01/24
--- OUTSIDE RECORDS SUMMARY | 2024-11-07 16:26 | XMS_ITS | Encounter Summary ---
Author Organization [employer] Address [address] [place] [address] Care Team Providers Care [employer] Buyer Name Role Phone Joan Hernández MANUFACTURING ASSISTANT Primary Care Provider [phone] Encounter Details Date Type Department Care Team ([facility] st Contact Info) Description 11/04/2024 Telephone [facility] [address] [place] [address] Parvin Cosby MA Social History Tobacco Use Types Packs/Day Years Used Date Smoking Tobacco: Never Smokeless Tobacco: Never Alcohol Use Standard Drinks/Week Comments Never 0 (1 standard drink = 0.6 oz pur e alcohol) Housing Stability Answer Date Recorded What is your housing situation today? I have koko leander 10/28/[address] you li [...] off services in your home? No 10/28/2024 Internet Access Answer Date Recorded Internet Access Q1 Yes 10/28/2024 Internet Access Q2 Not on file 10/28/2024 Comments Unknown Sex and Gender Information Value Date Recorded Sex Assigned at Female 12/30/2021 10:25 AM EDT Legal Sex Female 10:25 AM EDT Gender Identity Female 12/30/2021 10:25 AM EDT Sexual Orientation Choose not to disclose 2021 10:25 AM EDT documented as of this encounter Miscellaneous Notes * Telephone Encounter - Parvin Cosby MA - 11/04/2024 2:39 PM EDT Chart Prep Labs: not applicable Images: not applicable Referrals: not applicable Vaccines due: Covid, Flu, Tdap, and Hep B Screenings: colonoscopy and pap smear Overdue care gaps: SBIRT, PHQ-9, and Disability screen documented in this encounter Plan of Treatment Not on file documented as of this encounter Visit Diagnoses Not on filedocumented in this encounter Care Teams [employer] Buyer Relationship Specialty Start Date End Date Joan Hernández FNP [address] [place] [id number] PCP - General Family Medicine 01/01/24 documented as of this encounter
--- OUTSIDE RECORDS SUMMARY | 2024-11-07 16:26 | XMS_ITS | Encounter Summary ---
Author Organization [employer] Address [address] [place] [address] Care Team Providers Care Mortgage Loan Coordinator Name Role Phone Funmi Richards LEAD ASSISTANT MANAGER Primary Care Provider Kallie Yamilka Bajwa NP Primary Care Provider [phone] Joan HernándezP Primary Care Provider [phone] Encounter Details Date Type Department Care Team (Latest Contact Info) Description 09/27/2020 Abstract [facility] CONVERSIONS Dental, Provider, DDS Social History Tobacco Use Types Packs/Day Years Used Date Smoking Tobacco: Never Assessed Comments Unknown Sex and Gender Information Value Date Recorded Sex Assigned at Female 12/30/2021 10:25 AM EDT Legal Sex Female 10:25 AM EDT Gender Identity Female 12/30/2021 10:25 AM EDT Sexual Orientation Choose not to disclose 2021 10:25 AM EDT documented as of this encounter Plan of Treatment Not on file documented as of this encounter Visit Diagnoses Not on filedocumented in this encounter Care Teams Mortgage Loan Coordinator Relationship Specialty Start Date End Date Funmi Richards FNP PCP - General Family Medicine 08/28/21 12/04/22 Yamilka Nava NP [address] [place] [address] PCP - General Family Medicine 12/05/22 12/31/23 Joan Hernández FNP [address] [place] [address] PCP - General Family Medicine 01/01/24 documented as of this encounter
[2024-11-07 16:45] LABS: Alanine Aminotransferase 14 U/L (0-31); Albumin Level 4.5 g/dL (3.5-5.0); Alkaline Phosphatase 60 U/L (39-117); Anion Gap 13 (12-20); Aspartate Amino Transferase 20 U/L (5-31); Blood Urea Nitrogen 22 mg/dL (9-16); Calcium 9.1 mg/dL (8.4-10.2); Carbon Dioxide 25 mmol/L (22-29); Chloride 108 mmol/L (96-108); Cholesterol 248 mg/dL (<200); Estimated Glomerular Filt Rate 52; HDL Cholesterol 43 mg/dL (>40); Potassium 3.9 mmol/L (3.3-5.1); Sodium 142 mmol/L (135-145); Total Protein 7.6 g/dL (6.5-8.0); Triglycerides 200 mg/dL (<150)
[2024-11-07 17:13] LABS: Reflex LDLD? No
[2024-11-08 03:29] LABS: Syphilis Screen Nonreactive (Nonreactive)
[2024-11-08 04:01] LABS: HBS Num1 0.24 mIU/mL (0-7.99); HBc Num1 0.06 S/CO (0.00-0.79); HBsAGNum1 0.48 S/CO (0.00-0.99); HIV Num 1 0.05 S/CO (0.00-0.99); Hepatitis B Surface Antigen Negative (Negative); ~HepC Num1 0.11 S/CO (0.00-0.79); ~Hepatitis B Surface Antibody NONREACTIVE (Nonreactive); ~Hepatitis C Antibody Nonreactive (Nonreactive)
== END 2024-11-07 14:05 | disposition home or self-care (01) ==
LOC: HO.HHCL 14:04
PROVIDERS: PCP Nurse Practitioner Family; Referring Provider Family Medicine; Visit Provider Family Medicine
DX: Z01.84 Encounter for antibody response examination (principal); Z11.3 Encounter for screening for infections with a predominantly sexual mode of transmission; Z11.4 Encounter for screening for human immunodeficiency virus [HIV]; Z11.59 Encounter for screening for other viral diseases; Z13.220 Encounter for screening for lipoid disorders; R53.83 Other fatigue; Z86.32 Personal history of gestational diabetes
CPT/HCPCS: 36415; 80053; 80061; 83036; 84443; 85025; 86704; 86706; 86780; 86803; 87340; 87389

== ENCOUNTER 2024-11-10 10:21 | Outpatient (REF) | payer MEDICAID, SELFPAY ==
[2024-11-10 14:26] LABS: Reticulocytes Absolute 0.059 X10*6/uL (0.026-0.095)
[2024-11-10 14:56] LABS: Iron 50 mcg/dL (30-160); Percent Iron Saturation 14 % (15-50); Total Iron Binding Capacity 364 mcg/dL (228-428); Unsaturated Iron Binding 314 ug/dL
[2024-11-10 15:14] LABS: Ferritin 11 ng/mL (10-250)
[2024-11-10 15:19] LABS: Folate 9.0 ng/mL (> or = 4.0); Vitamin B12 353 pg/mL (200-900)
[2024-11-12 18:52] LABS: C. trachomatis RNA TMA NOT DETECTED (NOT DETECTED); N. gonorrhoeae RNA TMA NOT DETECTED (NOT DETECTED)
[2024-11-13 17:32] LABS: Trichomonas (NAAT) NOT DETECTED (NOT DETECTED)
== END 2024-11-10 10:22 | disposition home or self-care (01) ==
LOC: HO.CHCLDS 10:21
PROVIDERS: Visit Provider Family Medicine
DX: Z01.419 Encounter for gynecological examination (general) (routine) without abnormal findings (principal); Z11.3 Encounter for screening for infections with a predominantly sexual mode of transmission; Z11.8 Encounter for screening for other infectious and parasitic diseases; Z11.51 Encounter for screening for human papillomavirus (HPV); D64.9 Anemia, unspecified
CPT/HCPCS: 82607; 82728; 82746; 83540; 85045; 87491; 87591; 87626; 87661; 88175